=== PATIENT | female | born 1975 | race Caucasian/White ===

== ENCOUNTER 2020-10-30 13:21 | Emergency (ER) | payer OTHER ==
[2020-10-30 14:25] LABS: HEMOGLOBIN 14.6 gm/dl (12.3-15.3); RED BLOOD COUNT 4.84 M/UL (4.00-5.10); WHITE BLOOD COUNT 8.7 K/UL (4.5-11.0)
[2020-10-30 14:45] LABS: BUN/CREATININE RATIO 14 (0-10)
== END 2020-10-30 17:55 | disposition home or self-care (01) ==
LOC: ER1 13:21
PROVIDERS: Emergency Medicine
DX: R07.89 Other chest pain (principal); I10 Essential (primary) hypertension; E78.5 Hyperlipidemia, unspecified; K21.9 Gastro-esophageal reflux disease without esophagitis; Z90.710 Acquired absence of both cervix and uterus
CPT/HCPCS: 71045; 80053; 82550; 82553; 83874; 84484; 85025; 85379; 93005; 99285

== ENCOUNTER 2021-01-08 00:20 | Emergency (ER) | payer OTHER ==
[2021-01-08 00:51] LABS: HEMOGLOBIN 13.7 gm/dl (12.3-15.3); RED BLOOD COUNT 4.71 M/UL (4.00-5.10); WHITE BLOOD COUNT 5.8 K/UL (4.5-11.0)
[2021-01-08 01:47] LABS: BUN/CREATININE RATIO 14 (0-10)
[2021-01-08] MEDS ORDERED: LODINE CAP 300300 MG PO (03:04)
[2021-01-08] MEDS ORDERED: VENTOLIN HFA 66.7 GM INH (03:04)
[2021-01-08] MEDS ORDERED: DECADRON6 MG PO (03:04)
== END 2021-01-08 04:50 | disposition home or self-care (01) ==
LOC: ER1 00:20
PROVIDERS: Physician Assistant
DX: Z23 Encounter for immunization (principal); U07.1 COVID-19; I10 Essential (primary) hypertension; Z90.710 Acquired absence of both cervix and uterus
CPT/HCPCS: 71045; 80053; 82550; 82553; 83874; 84484; 85025; 93005; 99285; M0243; U0002